=== PATIENT | male | born 1985 | race Two or more races ===

== ENCOUNTER 2023-07-10 08:07 | Emergency (ER) | payer OTHER ==
[~2023-07-10] VITALS: Ht 170.2 cm; Wt 72.6 kg
[2023-07-10] MEDS ORDERED: DEXTROSE 50%-WATER 50 ML DISP.SYRIN ONE (08:14)
[2023-07-10] MEDS ORDERED: DEXTROSE 50%-WATER 50 ML DISP.SYRIN IV ONE (08:30)
[2023-07-10] MEDS ORDERED: IV NS 0.9% 1,000 ML BAG IV ONE (08:30)
[2023-07-10] MEDS ORDERED: Sodium Chloride 77 MEQ in IV 10% DEXTROSE 1,000 ML IV ONE (08:30)
[2023-07-10] MEDS ORDERED: NALOXONE HCL 0.4 MG/ML AMPUL IV ONE (08:30)
[2023-07-10 08:53] LABS: BASOPHILS % (AUTO) 0.2 % (0.0-2.0); EOSINOPHILS # (AUTO) 0.1 K/uL (0.0-0.7); EOSINOPHILS % (AUTO) 0.5 % (0.0-6.0); HEMATOCRIT 41 % (39-51); HEMOGLOBIN 13.6 g/dL (13.5-17.5); LYMPHOCYTES # (AUTO) 1.5 K/uL (0.8-4.8); LYMPHOCYTES % (AUTO) 6.7 % (20.0-44.0); MEAN CORPUSCULAR HEMOGLOBIN 29 PG (26.0-33.0); MEAN CORPUSCULAR HGB CONC 33 g/dl (31.0-36.0); MEAN CORPUSCULAR VOLUME 88 fL (80-96); MONOCYTES # (AUTO) 0.8 K/uL (0.1-1.30); MONOCYTES % (AUTO) 3.6 % (2.0-12.0); NEUTROPHILS # (AUTO) 19.4 K/uL (1.8-8.9); PLATELET COUNT (AUTO) 335 K/uL (150-450); RED BLOOD CELL COUNT(AUTO) 4.72 MIL/uL (4.5-6.0); RED CELL DISTRIBUTION WIDTH 14.6 % (11.5-15.0); WHITE BLOOD COUNT (AUTO) 21.8 K/uL (4.3-11.0)
[2023-07-10] MEDS ORDERED: NALOXONE HCL 0.4 MG/ML AMPUL ONE (08:53)
[2023-07-10 09:07] LABS: ACETAMINOPHEN <10 ug/ml (10-30); ALANINE AMINOTRANSFERASE 56 U/L (12-78); ALBUMIN 4.2 g/dL (3.4-5.0); ALCOHOL, BLOOD < 3 mg/dL (0-10); ALKALINE PHOSPHATASE 81 U/L (46-116); ASPARTATE AMINOTRANSFERASE 114 U/L (15-37); BILIRUBIN,DIRECT 0.2 mg/dL (0.0-0.2); BILIRUBIN,TOTAL 0.9 mg/dL (0.2-1.0); CALCIUM, SERUM 8.6 mg/dL (8.5-10.1); CARBON DIOXIDE 28 mmol/L (21-32); CHLORIDE 107 mmol/L (98-107); GLUCOSE 56 mg/dL (74-106); POTASSIUM 3.4 mmol/L (3.5-5.1); SALICYLATE < 2.3 mg/dL (2.8-20.0); SODIUM SERUM 144 mmol/L (136-145); TOTAL PROTEIN, SERUM 7.6 g/dL (6.4-8.2); UREA NITROGEN, BLOOD 30 mg/dL (7-18)
[2023-07-10 09:15] LABS: THYROID STIMULATING HORMONE 2.492 uIU/mL (0.358-3.74)
[2023-07-10 09:17] LABS: INR 1.04 (0.91-1.10); PARTIAL THROMBOPLASTIN TIME 25.6 SEC (24.3-34.3); PROTHROMBIN TIME 10.9 SECS (9.2-11.1)
[2023-07-10 09:36] LABS: APPEARANCE,URINE CLEAR (CLEAR); BILIRUBIN,URINE NEGATIVE (NEGATIVE); BLOOD, URINE 3+ Ery/uL (NEGATIVE); COLOR,URINE YELLOW (YELLOW); KETONES,URINE TRACE mg/dL (NEGATIVE); LEUKOCYTE ESTERASE ,URINE NEGATIVE (NEGATIVE); NITRITE, URINE NEGATIVE (NEGATIVE); PH,URINE 5.5 (5.0-8.0); PROTEIN,URINE 2+ mg/dl (NEGATIVE); UGLUCOSE NEGATIVE (NEGATIVE); UROBILINOGEN,URINE 0.2 EU/dL (0.2)
[2023-07-10 09:40] LABS: ADD URINE CULTURE NO; BACTERIA,URINE Rare /HPF (None Seen); FINE GRANULAR CASTS,URINE Few /LPF (None Seen); SQUAMOUS EPITHELIAL CELL,UR Few /HPF (None Seen); WBC,URINE 0-2 /HPF (0-3)
[2023-07-10 09:46] LABS: BARBITURATE, URINE NEGATIVE (NEGATIVE); COCCAINE, URINE NEGATIVE (NEGATIVE); PHENCYCLIDINE SCREEN,URINE NEGATIVE (NEGATIVE)
[2023-07-10 09:51] LABS: AMPHETAMINE, URINE POSITIVE (NEGATIVE); BENZODIAZEPINE, URINE POSITIVE (NEGATIVE); CANNABINOID, URINE POSITIVE (NEGATIVE); OPIATE, URINE POSITIVE (NEGATIVE)
[2023-07-10] MEDS ORDERED: AZIT250T13 PO (13:47)
[2023-07-10 14:54] VITALS: BP 118/67; O2SAT 100
== END 2023-07-10 14:55 | disposition home or self-care (01) ==
LOC: ER 08:20 → EDBD 08:20 → ER 14:55
DX: J18.9 Pneumonia, unspecified organism (principal); R41.82 Altered mental status, unspecified; F19.10 Other psychoactive substance abuse, uncomplicated; Z79.899 Other long term (current) drug therapy
CPT/HCPCS: 99291; 96374; 96361; 96375; 93005; 71045; 72125; 70450; 85025; 80048; 80076; 81001; 36415; 84443; 85730; 82962 ×2; 80143; 80320; 80307; J2310; J3490; J7030; A4223; G0480

== ENCOUNTER 2025-08-28 18:08 | Emergency (ER) | payer MEDICAID, OTHER ==
[~2025-08-28] VITALS: Ht 175.3 cm; Wt 81.6 kg
[~2025-08-28 18:08] MED LIST: AZIT250T13 PO
[2025-08-28 18:36] LABS: PLATELET COUNT (AUTO) 271 K/uL (150-450); RED BLOOD CELL COUNT(AUTO) 4.18 MIL/uL (4.5-6.0); RED CELL DISTRIBUTION WIDTH 16.4 % (11.5-15.0); WHITE BLOOD COUNT (AUTO) 14.5 K/uL (4.3-11.0)
[2025-08-28] MEDS ORDERED: LORAZEPAM INJ 2 MG/ML VIAL ONE ×2 (18:48→21:58)
[2025-08-28] MEDS ORDERED: OLANZAPINE 10 MG VIAL IM ONE (18:48)
[2025-08-28] MEDS: LORAZEPAM INJ 2 MG/ML VIAL IM ONE (18:54)
[2025-08-28] MEDS: OLANZAPINE 10 MG VIAL IM ONE (18:55)
[2025-08-28 18:56] LABS: ASPARTATE AMINOTRANSFERASE 92 U/L (15-37); CREATININE 1.4 mg/dL (0.6-1.3); SODIUM SERUM 145 mmol/L (136-145); TOTAL PROTEIN, SERUM 7.1 g/dL (6.4-8.2); UREA NITROGEN, BLOOD 32 mg/dL (7-18)
[2025-08-28] MEDS ORDERED: DEXTROSE 50%-WATER 50 ML DISP.SYRIN ONE ×2 (19:05→20:45)
[2025-08-28 19:06] LABS: CALCIUM, SERUM 8.4 mg/dL (8.5-10.1)
[2025-08-28] MEDS: DEXTROSE 50%-WATER 50 ML DISP.SYRIN IVP ONE ×2 (19:30→20:45)
[2025-08-28 20:20] LABS: APPEARANCE,URINE CLEAR (CLEAR); BLOOD, URINE TRACE-INTA Ery/uL (NEGATIVE); LEUKOCYTE ESTERASE ,URINE NEGATIVE (NEGATIVE); NITRITE, URINE NEGATIVE (NEGATIVE); UGLUCOSE NEGATIVE (NEGATIVE)
[2025-08-28 20:27] LABS: AMPHETAMINE, URINE POSITIVE (NEGATIVE); BARBITURATE, URINE NEGATIVE (NEGATIVE); BENZODIAZEPINE, URINE NEGATIVE (NEGATIVE); CANNABINOID, URINE NEGATIVE (NEGATIVE); COCCAINE, URINE NEGATIVE (NEGATIVE); OPIATE, URINE NEGATIVE (NEGATIVE)
[2025-08-28] MEDS: IV NS 0.9% 1,000 ML BAG IV ONE (20:35)
[2025-08-28 21:07] LABS: ADD URINE CULTURE YES; SQUAMOUS EPITHELIAL CELL,UR Moderate /HPF (None Seen)
[2025-08-28] MEDS ORDERED: Sodium Chloride 77 MEQ in IV 10% DEXTROSE 1,000 ML IV PRN (21:30)
[2025-08-28] MEDS: LORAZEPAM INJ 2 MG/ML VIAL IV ONE ×2 (21:50→22:00)
[2025-08-28] MEDS: IV D5/ 0.9% NACL 1,000 ML IV ONE (22:00)
[2025-08-29] MEDS ORDERED: OLANZAPINE 10 MG VIAL IM ONE (03:01)
[2025-08-29] MEDS: OLANZAPINE 10 MG VIAL IM ONE (03:04)
[2025-08-29] MEDS ORDERED: LORAZEPAM INJ 2 MG/ML VIAL ONE ×2 (04:18→13:04)
[2025-08-29] MEDS: LORAZEPAM INJ 2 MG/ML VIAL IM ONE (04:21)
[2025-08-29] MEDS ORDERED: DEXTROSE 50%-WATER 50 ML DISP.SYRIN ONE (06:18)
[2025-08-29] MEDS: DEXTROSE 50%-WATER 50 ML DISP.SYRIN IVP ONE (06:22)
[2025-08-29 07:24] VITALS: TEMP 97.9
[2025-08-29 13:00] VITALS: BP 150/90; O2SAT 99
[2025-08-29] MEDS: LORAZEPAM INJ 2 MG/ML VIAL IV ONE (13:08)
== END 2025-08-29 13:45 ==
LOC: ER 18:13
DX: F29 Unspecified psychosis not due to a substance or known physiological condition (principal); F19.10 Other psychoactive substance abuse, uncomplicated; Z20.822 Contact with and (suspected) exposure to COVID-19
CPT/HCPCS: 99285; 96372 ×2; 96374; 96361; 96375; 96376 ×2; 85025; 80048; 87086; 80076; 81001; 36415; 82962 ×7; 80143; 80320; 80307; 87426; J2060 ×4; J1200 ×2; J3490 ×3; J7042; J7030; A4223; G0480